=== PATIENT | male | born 1975 | race Caucasian/White ===

== ENCOUNTER 2019-08-23 10:03 | Emergency (ER) | payer BC, SELFPAY ==
[2019-08-23 10:24] VITALS: BP 130/65; PULSE 60; RESP 20; TEMP 36.6; O2SAT 98
--- NOTE | 2019-08-23 10:28 | ED.GENADULT ---
HPI - General Adult General Chief complaint: Upper Respiratory Infection Stated complaint: Cough/fever Time Seen by Provider: 08/23/19 10:29 Source: patient and RN notes reviewed Mode of arrival: ambulatory Limitations: no limitations History of Present Illness HPI narrative: This is a 44 years old male presents to the office for an evaluation of sore throat for two days. Associated with feeling achy, feverish, And decreased appetite. He also reported cough when he woke up this morning. His son was sick with strep a week ago. He took ibuprofen for his symptoms. He is not sure if he had influenza vaccine for the season. He does not smoke. Related Data Home Medications Medication Instructions Recorded Confirmed cetirizine [Zyrtec] 10 mg PO DAILY 08/23/19 08/23/19 Allergies Allergy/AdvReac Type Severity Reaction Status Date / Time No Known Allergies Allergy Verified 08/23/19 10:35 Review of Systems Review of Systems: Narrative: CONSTITUTIONAL: Reports fever, chills ENT: Reports sore throat. Denies otalgia. CARDIOVASCULAR: Denies chest pain, palpitation RESPIRATORY: Denies dyspnea, wheezing. Reports cough GASTROINTESTINAL: Denies abdominal pain, nausea, vomiting, diarrhea. GENITOURINARY: Denies urinary symptoms SKIN: Denies rash MUSCULOSKELETAL: Denies acute back pain NEUROLOGIC: Denies lightheaded PMFSH Past Medical History Medical History (Updated 08/23/19 @ 11:03 by ELO Campos) Left knee pain chronic Social History Social History (Updated 08/23/19 @ 10:44 by ELO Campos) Smoking status: Never smoker Comments At time of signature, I agree with nursing past medical, surgical, social and family history. There is no relevant family history pertinent to the presenting complaint. Exam Narrative: Exam Narrative: GENERAL: This is a well-nourished, well-developed patient, in no apparent distress. EYES: Sclera clear/white. Vision is grossly intact. EARS: External ears normal, auditory canals clear and without drainage, TMs normal without perforation. Hearing grossly intact. NOSE: External nose normal with no obvious nasal discharge, nares without redness, no rhinorrhea. THROAT: Mucous membranes moist, posterior pharynx clear. NECK: Neck supple, non-tender without lymphadenopathy, masses or thyromegaly. CARDIOVASCULAR: Regular rate and rhythm without murmurs, gallops, or rubs. RESPIRATORY: Clear to auscultation. Breath sounds equal bilaterally. No wheezes, rales, or rhonchi. GASTROINTESTINAL: Abdomen soft, non-tender, nondistended. Bowel sounds are active. No hepato-splenomegaly, or palpable masses. No guarding. SKIN: warm, intact with no suspicious lesions or rash, good texture and turgor. NEURO: awake, alert, and oriented to person, place and time. There were no obvious focal neurologic abnormalities. Steady gait Percy Coma Scale Eye Opening: Spontaneous 4 Percy Coma Scale Motor: Obeys Commands 6 Percy Coma Scale Verbal: Oriented 5 Course Vital Signs Vital signs: Vital Signs Temperature 97.8 F 08/23/19 10:24 Pulse Rate 60 08/23/19 10:24 Respiratory Rate 20 08/23/19 10:24 Blood Pressure 130/65 08/23/19 10:24 Pulse Oximetry 98 08/23/19 10:24 Temperature 97.8 F 08/23/19 10:24 Pulse Rate 60 08/23/19 10:24 Respiratory Rate 20 08/23/19 10:24 Blood Pressure 130/65 08/23/19 10:24 Pulse Oximetry 98 08/23/19 10:24 Medical Decision Making MDM Narrative Medical decision making narrative: Discharge instructions reviewed with patient, as well as provided in writing per nursing staff. The instructions also include specific and strict return/GO TO THE ER as well as f/u information. All questions have been answered, and the patient deny any further questions with discharge and discharge plan. Differential Diagnosis Differential Diagnosis: pneumonia, Allergic Rhinitis, Upper respiratory cough syndrome, Pharyngitis, Sinusitis, Bronchitis, ot
== END 2019-08-23 11:10 | disposition home or self-care (01) ==
PROVIDERS: Emergency Provider Nurse Practitioner
DX: J06.9 Acute upper respiratory infection, unspecified (principal)
CPT/HCPCS: 87081; 87804; 87880; 99203; G0463